=== PATIENT | female | born 1975 | race African-American/Black ===

== ENCOUNTER 2017-03-10 15:37 | Emergency (ER) | payer BC, MEDICAID ==
--- NOTE | 2017-03-10 16:00 | ER Document Report ---
ED Medical Screen (RME) - General Chief Complaint: Chest Pain Stated Complaint: CHEST PAIN Time Seen by Provider: 03/10/17 15:57 Notes: Patient states that about 1 hour ago she started with substernal chest pain and shortness of breath. She states she has had no cough or cold recently. She did have a normal stress test one year ago. She states that she does have a history of protein S deficiency and did have a blood clot when she was . The blood clot was in the placenta. She denies any DVTs otherwise or pulmonary embolisms in the past. She does not use tobacco. TRAVEL OUTSIDE OF THE [place] IN LAST 30 DAYS: No - Related Data Allergies/Adverse Reactions: methylergonovine maleate [From Methergine] Allergy (Severe, Verified 03/10/17 15 :43) Hemorrhage egg Allergy (Intermediate, Verified 03/10/17 15:43) Generalized Itching erythromycin base Allergy (Intermediate, Verified 03/10/17 15:43) Generalized Itching Iodinated Contrast- Oral and IV Dye Allergy (Intermediate, Verified 03/10/17 15: 43) Anaphylaxis Shellfish * Allergy (Intermediate, Verified 03/10/17 15:43) GI upset Past Medical History - Social History Frequency of alcohol use: None Drug Abuse: None - Past Medical History Cardiac Medical History: Denies: Hx Coronary Artery Disease, Hx Heart Attack, Hx Hypertension Pulmonary Medical History: Reports: Hx Asthma Denies: Hx Bronchitis, Hx COPD, Hx Pneumonia Neurological Medical History: Denies: Hx Cerebrovascular Accident, Hx Seizures Renal/ Medical History: Denies: Hx Peritoneal Dialysis Musculoskeltal Medical History: Denies Hx Arthritis Past Surgical History: Denies: Hx Hysterectomy - Immunizations Hx Diphtheria, Pertussis, Tetanus Vaccination: Yes Physical Exam - Vital signs Vitals: Temp Pulse Resp BP Pulse Ox 97.9 F 102 H 18 160/86 H 100 03/10/17 15:53 03/10/17 15:53 03/10/17 15:53 03/10/17 15:53 03/10/17 15:53 Course - Vital Signs Vital signs: Temp Pulse Resp BP Pulse Ox 97.9 F 102 H 18 160/86 H 100 03/10/17 15:53 03/10/17 15:53 03/10/17 15:53 03/10/17 15:53 03/10/17 15:53
[2017-03-10 16:28] LABS: ABSOLUTE EOSINOPHILS # (AUTO) 0.1 10^3/uL (0.0-0.6); ABSOLUTE LYMPHOCYTES (AUTO) 2.1 10^3/uL (0.5-4.7); ABSOLUTE MONOCYTES (AUTO) 0.8 10^3/uL (0.1-1.4); ABSOLUTE NEUT (AUTO) 4.5 10^3/uL (1.7-8.2); BASOPHILS % (AUTO) 0.3 % (0-2); EOSINOPHILS % (AUTO) 1.1 % (0-6); HEMATOCRIT 35.1 % (36.0-47.0); HGB HCT DIFFERENCE -2.1; LYMPHOCYTES % (AUTO) 27.6 % (13-45); MEAN CORPUSCULAR HGB CONC 31.2 g/dL (32.0-36.0); MEAN CORPUSCULAR VOLUME 77 fl (80-97); MONOCYTES % (AUTO) 10.1 % (3-13); RED BLOOD COUNT 4.57 10^6/uL (3.72-5.28); RED CELL DISTRIBUTION WIDTH 16.9 % (11.5-14.0); SEGMENTED NEUTROPHILS % (AUTO) 60.9 % (42-78); WHITE BLOOD COUNT 7.4 10^3/uL (4.0-10.5)
[2017-03-10 16:33] LABS: APPEARANCE,URINE SLIGHTLY-CLOUDY; BILIRUBIN,URINE NEGATIVE (NEGATIVE); GLUCOSE, URINE NEGATIVE (NEGATIVE); KETONES,URINE NEGATIVE (NEGATIVE); LEUKOCYTE ESTERASE,URINE NEGATIVE (NEGATIVE); NITRITE,URINE NEGATIVE (NEGATIVE); PROTEIN,URINE NEGATIVE (NEGATIVE); URINE SPECIFIC GRAVITY 1.031; UROBILINOGEN,URINE NEGATIVE mg/dL (<2.0)
[2017-03-10 16:44] LABS: ALANINE AMINOTRANSFERASE 29 U/L (9-52); ALBUMIN 4.6 g/dL (3.5-5.0); ALKALINE PHOSPHATASE 69 U/L (38-126); ANION GAP 14 (5-19); ASPARTATE AMINO TRANSFERASE 20 U/L (14-36); BILIRUBIN,DIRECT 0.4 mg/dL (0.0-0.4); BILIRUBIN,TOTAL 0.4 mg/dL (0.2-1.3); BLOOD UREA NITROGEN 13 mg/dL (7-20); CALCIUM 9.6 mg/dL (8.4-10.2); CARBON DIOXIDE 24 mmol/L (22-30); CHLORIDE 102 mmol/L (98-107); CREATININE RESULT 0.79 mg/dL (0.52-1.25); GLUCOSE 84 mg/dL (75-110); TOTAL PROTEIN 7.9 g/dL (6.3-8.2)
--- NOTE | 2017-03-10 16:52 | RADIOLOGY REPORT (SQ) ---
EXAM DESCRIPTION: CHEST PA/LAT COMPLETED DATE/TIME: 03/10/2017 4:25 pm REASON FOR STUDY: cp COMPARISON: Two-view chest 12/10/2015 EXAM PARAMETERS: NUMBER OF VIEWS: two views TECHNIQUE: Digital Frontal and Lateral radiographic views of the chest acquired. RADIATION DOSE: NA LIMITATIONS: none FINDINGS: LUNGS AND PLEURA: No opacities, masses or pneumothorax. No pleural effusion. MEDIASTINUM AND HILAR STRUCTURES: No masses or contour abnormalities. HEART AND VASCULAR STRUCTURES: Heart normal size. No evidence for failure. BONES: No acute findings. HARDWARE: None in the chest. OTHER: No other significant finding. IMPRESSION: NO SIGNIFICANT RADIOGRAPHIC FINDING IN THE CHEST. TECHNICAL DOCUMENTATION: JOB ID: [id number] [employer]- All Rights Reserved
[2017-03-10] MEDS ORDERED: MAG HYDROX/AL HYDROX/SIMETH SUSP 30 ML UDCUP PO ONE (17:28)
[2017-03-10] MEDS ORDERED: LIDOCAINE 2% VISCOUS SOLN 20 ML UDCUP PO ONE (17:28)
--- NOTE | 2017-03-10 17:29 | ER Document Report ---
ED General - General Mode of Arrival: Ambulatory Information source: Patient TRAVEL OUTSIDE OF THE [place] IN LAST 30 DAYS: No <TASHIA ISBELL - Last Filed: 03/10/17 17:29> <POP GIORDANO - Last Filed: 03/10/17 19:37> - General Chief Complaint: Chest Pain Stated Complaint: CHEST PAIN Time Seen by Provider: 03/10/17 15:57 Notes: Patient is a 41-year-old female who presents to the emergency department today with complaints of chest pain of a 2 hour duration. Patient states she noticed the pain is much worse when she bends over and breathes. Patient states she has "bad GERD" and over the last week has had an increased amount of acid production she feels like, and after eating food her throat gets the sensation that it is closing. Patient denies any reproduction of pain with cough. (TASHIA ISBELL) - Related Data Allergies/Adverse Reactions: methylergonovine maleate [From Methergine] Allergy (Severe, Verified 03/10/17 15 :43) Hemorrhage egg Allergy (Intermediate, Verified 03/10/17 15:43) Generalized Itching erythromycin base Allergy (Intermediate, Verified 03/10/17 15:43) Generalized Itching Iodinated Contrast- Oral and IV Dye Allergy (Intermediate, Verified 03/10/17 15: 43) Anaphylaxis Shellfish * Allergy (Intermediate, Verified 03/10/17 15:43) GI upset Past Medical History - General Information source: Patient, [facility] Records - Social History Smoking Status: Never Smoker Cigarette use (# per day): No Frequency of alcohol use: None Drug Abuse: None Lives with: Family Family History: Reviewed & Not Pertinent Pulmonary Medical History: Reports: Hx Asthma Surgical Hx: Negative - Immunizations Hx Diphtheria, Pertussis, Tetanus Vaccination: Yes <TASHIA ISBELL - Last Filed: 03/10/17 17:29> <POP GIORDANO - Last Filed: 03/10/17 19:37> - Medical History Notes: Protein S deficiency (TASHIA ISBELL) Review of Systems - Review of Systems Constitutional: No symptoms reported EENT: No symptoms reported Cardiovascular: See HPI, Chest pain Respiratory: No symptoms reported Gastrointestinal: See HPI, Other - GERD Genitourinary: No symptoms reported Female Genitourinary: No symptoms reported Musculoskeletal: No symptoms reported Skin: No symptoms reported Hematologic/Lymphatic: No symptoms reported Neurological/Psychological: No symptoms reported -: Yes All other systems reviewed and negative <SUKHITASHIA - Last Filed: 03/10/17 17:29> Physical Exam - Vital signs Interpretation: Normal - General General appearance: Appears well, Alert - HEENT Head: Normocephalic, Atraumatic Eyes: Normal Pupils: PERRL - Respiratory Respiratory status: No respiratory distress Chest status: Nontender - no chest wall tenderness Breath sounds: Normal Chest palpation: Normal - Cardiovascular Rhythm: Regular Heart sounds: Normal auscultation Murmur: No - Abdominal Inspection: Obese Distension: No distension Bowel sounds: Normal Tenderness: Tender - mild epigastric tenderness with palpation Organomegaly: No organomegaly - Back Back: Normal, Nontender - Extremities General upper extremity: Normal inspection, Normal strength. No: Edema General lower extremity: Normal inspection, Normal strength. No: Edema - Neurological Neuro grossly intact: Yes Cognition: Normal Orientation: AAOx4 Brice Coma Scale Eye Opening: Spontaneous Granby Coma Scale Verbal: Oriented Gran[place] Coma Scale Motor: Obeys Commands Granby Coma Scale Total: 15 Speech: Normal - Psychological Associated symptoms: Normal affect, Normal mood - Skin Skin Temperature: Warm Skin Moisture: Dry Skin Color: Normal <SUKHITASHIA - Last Filed: 03/10/17 17:29> - Vital signs Vitals: Temp Pulse Resp BP Pulse Ox 97.9 F 102 H 18 160/86 H 100 03/10/17 15:53 03/10/17 15:53 03/10/17 15:53 03/10/17 15:53 03/10/17 15:53 Course - Laboratory Result Diagrams: 03/10/17 16:00 03/10/17 16:00 <SUKHITASHIA - Last Filed: 03/10/17 17:29> - Laboratory Result Diagrams: 03/10/17 16:00 03/10/17 16:00 - Diagnostic Test Radiology reviewed: Reports reviewed - Ventilation/perfusion lung scan is negative for pulmonary embolus. Chest x-ray is unremarkable. - EKG Interpretation by [facility] EKG shows normal: Sinus rhythm, Mullins, Intervals, QRS Complexes, ST-T Waves Rate: Tachycardia - 101 <POP GIORDANO - Last Filed: 03/10/17 19:37> - Vital Signs Vital signs: Temp Pulse Resp BP Pulse Ox 98.7 F 102 H 18 142/84 H 99 03/10/17 19:28 03/10/17 19:28 03/10/17 19:28 03/10/17 19:28 03/10/17 19:28 - Laboratory Laboratory results interpreted by me: 03/10/17 03/10/17 16:00 16:00 Hgb 11.0 L Hct 35.1 L MCV 77 L MCH 24.0 L MCHC 31.2 L RDW 16.9 H Urine Ascorbic Acid 40 H Discharge <TASHIA ISBELL - Last Filed: 03/10/17 17:29> <POP GIORDANO - Last Filed: 03/10/17 19:37> - Discharge Clinical Impression: Chest pain Qualifiers: Chest pain type: unspecified Qualified Code(s): R07.9 - Chest pain, unspecified High blood pressure Qualifiers: Hypertension type: unspecified Qualified Code(s): I10 - Essential (primary) hypertension Condition: Stable Disposition: HOME, SELF-CARE Additional Instructions: Chest Pain of Unclear Cause: The exact cause of your chest pain isn't clear. Fortunately, there is no evidence of a dangerous medical condition. Further testing may be required to find the source of the pain. Most often, we find that this pain is coming from the chest wall -- the muscles or rib joints in the chest. But chest pain can come from the lung and lung lining, the esophagus, the heart valves or heart lining, and even the stomach or gallbladder. Rest. Eat lightly until the pain is gone. We may prescribe medicine for pain and inflammation. You should call the physician immediately if the pain radiates to the shoulder, jaw or arms; if you start to run a fever or develop a cough; or if you develop shortness of breath, or other new or alarming symptoms. High Blood Pressure: When your blood pressure was taken today it was elevated. Today's reading was 160/86. Pre-hypertension/Hypertension: The patient has been informed that they may have pre-hypertension or Hypertension based on a blood pressure reading in the emergency department. I recommend that the patient call their primary care provider next week to arrange follow up for further evaluation of possible pre- hypertension or Hypertension. Sometimes, stress or illness causes a temporary elevation of your blood pressure. We suggest that you get your blood pressure measured three more times during the next few days to see if this is more than a temporary abnormality. If your blood pressure is greater than 150/90 on each occasion, you must have treatment. Some simple things you can do to help are: If you have blood pressure medicine but aren't using it regularly, start taking it again. Get some aerobic exercise for at least 20 minutes on a daily basis. (See your doctor before beginning a new exercise program.) Eat a low-fat diet. Lose excess weight. Avoid salty foods and avoid adding salt to any of the foods you eat. Avoid diet pills, decongestants, "energizing" herbs, and other medicines that elevate blood pressure. If left untreated, hypertension greatly enhances your risk for developing heart disease and strokes. Please don't ignore this problem. RETURN TO THE EMERGENCY ROOM IF ANY NEW OR WORSENING SYMPTOMS. Referrals: DAQUAN CURRY DO [Primary Care Provider] - Follow up as needed Scribe Attestation: 03/10/17 19:25 I personally performed the services described in the documentation, reviewed and edited the documentation which was dictated to the scribe in my presence, and it accurately records my words and actions. (POP GIORDANO) Scribe Documentation - Scribe Written by Guillermina:: Guillermina Cornejo, 03/10/2017 1728 acting as scribe for :: Neil <TASHIA ISBELL - Last Filed: 03/10/17 17:29>
--- NOTE | 2017-03-10 18:47 | EKG REPORT ---
SEVERITY:- OTHERWISE NORMAL ECG - SINUS TACHYCARDIA : Confirmed by: Jayant Lee MD 10-Mar-2017 18:46:27
--- NOTE | 2017-03-10 19:22 | RADIOLOGY REPORT (SQ) ---
EXAM DESCRIPTION: NM LUNG VENT/PERF SCAN COMPLETED DATE/TIME: 03/10/2017 7:10 pm REASON FOR STUDY: Pleuritic chest pain, protein S deficiency COMPARISON: Chest x-ray dated 03/10/2017. RADIONUCLIDE AND DOSE: 5.25 millicuries TC-99m MAA Intravenous 29.9 millicuries TC-99m DTPA Inhaled aerosol TECHNIQUE: Eight views of the lungs acquired post ventilation of DTPA aerosol. Eight matching views of the lungs acquired following injection of MAA. LIMITATIONS: None. FINDINGS: VENTILATION: Symmetric and homogeneous distribution of DTPA aerosol during ventilatory pha se. No significant areas of photopenia. PERFUSION: Perfusion images with normal homogenous activity and no wedge-shaped or segmental defects. No ventilation-perfusion mismatches. OTHER: No other significant finding. IMPRESSION: NORMAL VENTILATION-PERFUSION LUNG SCAN. NEGATIVE FOR PULMONARY EMBOLI. TECHNICAL DOCUMENTATION: JOB ID: [id number] [employer]- All Rights Reserved
[2017-03-10 19:30] VITALS: BP 142/84
== END 2017-03-10 20:12 | disposition home or self-care (01) ==
LOC: ER 15:37
DX: R07.9 Chest pain, unspecified (principal); I10 Essential (primary) hypertension
CPT/HCPCS: 93005; 99285; 36415; 85025; 81025; 80053; 81001; 84484; 85379; 71020; 78582; 93010; A9540; A9567; J3490; Q9969

== ENCOUNTER → 2017-04-06 | Outpatient (CLI) | payer BC, MEDICAID ==
--- NOTE | 2017-04-06 15:14 | WOMENS IMAGING REPORT ---
EXAM DESCRIPTION: 3D SCREENING MAMMO BILAT COMPLETED DATE/TIME: 04/06/2017 10:44 am REASON FOR STUDY: ROUTINE SCREENING; Z12.31 Z12.31 ENCNTR SCREEN MAMMOGRAM FOR MALIGNANT NEOPLASM O F ABIGAIL COMPARISON: 02/19/2016 TECHNIQUE: Standard craniocaudal and mediolateral oblique views of each breast recorded using digita l acquisition and breast tomosynthesis. LIMITATIONS: None. FINDINGS: No masses, calcifications or architectural distortion. No areas of suspicion. Read with the assistance of CAD. .[facility] - R2 Cenova Version 1.3 .[facility] - R2 Cenova Version 1.3 .[facility] - R2 Cenova Version 2.4 .[facility] [place] - R2 Cenova Version 2.4 .ON LICENSE OF [facility] - R2 General Farmer Version 9.2 IMPRESSION: NORMAL MAMMOGRAM. BIRADS 1. BREAST DENSITY: c. The breasts are heterogeneously dense, which may obscure small masses. BIRAD: 1 NEGATIVE RECOMMENDATION: ROUTINE SCREENING Please continue yearly bilateral screening tomosynthesis in April 2018 COMMENT: The patient has been notified of the results by letter per SA requirements. Additional no tification policies are in place for contacting patient with suspicious or incomplete findings. Quality ID #[id number]: The [employer] [employer] recommends an annual screening mammogram for women aged 40 years or over. This facility utilizes a reminder system to ensure that all patients receive reminder letters, and/or direct phone calls for appointments. This includes reminders for routine scr eening mammograms, diagnostic mammograms, or other Breast Imaging Interventions when appropriate. Th is patient will be placed in the appropriate reminder system. The [place] [place] [employer] (ACR) has developed recommendations for screening MRI of the breast s in certain patient populations, to be used in conjunction with mammography. Breast MRI surveillanc e may be appropriate for women with more than 20% lifetime risk of developing breast cancer as deter mined by genetic testing, significant family history of the disease, or history of mantle radiation f or Hodgkins Disease. ACR Practice Guidelines 2008. DBT Technology DBT is a type of tomographic mammography. With conventional mammography, overlapping breast tissue ma y make lesions difficult to detect, even with good compression. DBT uses an x-ray tube that rotates a round the breast, taking images at different angles. These images are then combined to create thin sl ices of the breast that the radiologist can view as a 3D reconstruction. The [employer] unit can perform full-field digital mammograms (2D imaging); or DBT (3D imaging); or both, in a combination mode that quickly performs both the mammogram and the tomosynthesis scan while the breast is still compressed. PQRS 6045F: Fluoroscopic imaging is not utilized for breast tomosynthesis. TECHNICAL DOCUMENTATION: FINDING NUMBER: (1) ASSESSMENT: (1) JOB ID: [id number] [employer]- All Rights Reserved
== END ==
LOC: WI 10:36
PROVIDERS: ATTEND Physician Assistant
DX: Z12.31 Encounter for screening mammogram for malignant neoplasm of breast (principal)
CPT/HCPCS: 77063; G0202; 77067

== ENCOUNTER 2017-05-13 12:18 | Emergency (ER) | payer BC, MEDICAID ==
--- NOTE | 2017-05-13 12:43 | ER Document Report ---
ED Medical Screen (RME) - General Chief Complaint: Abdominal Pain Stated Complaint: STOMACH PAIN Time Seen by Provider: 05/13/17 12:40 Mode of Arrival: Ambulatory Information source: Patient TRAVEL OUTSIDE OF THE [place] IN LAST 30 DAYS: No - HPI Patient complains to provider of: abd pain Onset: Other - pt . states she took advil yesterday for menstrual cramps but her abdominal pain worsened. States she has no had a BM in 2 days - Related Data Allergies/Adverse Reactions: methylergonovine maleate [From Methergine] Allergy (Severe, Verified 05/13/17 12 :22) Hemorrhage egg Allergy (Intermediate, Verified 05/13/17 12:22) Generalized Itching erythromycin base Allergy (Intermediate, Verified 05/13/17 12:22) Generalized Itching Iodinated Contrast- Oral and IV Dye Allergy (Intermediate, Verified 05/13/17 12: 22) Anaphylaxis Shellfish * Allergy (Intermediate, Verified 05/13/17 12:22) GI upset Home Medications: Current Home Medications Ferrous Sulfate [Iron] 325 mg PO DAILY 05/13/17 [History] Multivitamin [Multivitamins] 1 each PO DAILY 05/13/17 [History] Past Medical History - Past Medical History Cardiac Medical History: Denies: Hx Coronary Artery Disease, Hx Heart Attack, Hx Hypertension Pulmonary Medical History: Reports: Hx Asthma Denies: Hx Bronchitis, Hx COPD, Hx Pneumonia Neurological Medical History: Denies: Hx Cerebrovascular Accident, Hx Seizures Renal/ Medical History: Denies: Hx Peritoneal Dialysis Musculoskeltal Medical History: Denies Hx Arthritis Past Surgical History: Denies: Hx Hysterectomy - Immunizations Hx Diphtheria, Pertussis, Tetanus Vaccination: Yes Physical Exam - Vital signs Vitals: Temp Pulse Resp BP Pulse Ox 98.6 F 83 16 148/89 H 97 05/13/17 12:23 05/13/17 12:23 05/13/17 12:23 05/13/17 12:23 05/13/17 12:23 Course - Vital Signs Vital signs: Temp Pulse Resp BP Pulse Ox 98.6 F 83 16 148/89 H 97 05/13/17 12:23 05/13/17 12:23 05/13/17 12:23 05/13/17 12:23 05/13/17 12:23
[2017-05-13 13:54] LABS: ABSOLUTE LYMPHOCYTES (AUTO) 1.4 10^3/uL (0.5-4.7); ABSOLUTE MONOCYTES (AUTO) 0.5 10^3/uL (0.1-1.4); ABSOLUTE NEUT (AUTO) 4.6 10^3/uL (1.7-8.2); BASOPHILS % (AUTO) 0.1 % (0-2); EOSINOPHILS % (AUTO) 0.7 % (0-6); HEMATOCRIT 34.4 % (36.0-47.0); HEMOGLOBIN 11.1 g/dL (12.0-15.5); HGB HCT DIFFERENCE -1.1; LYMPHOCYTES % (AUTO) 21.4 % (13-45); MEAN CORPUSCULAR HEMOGLOBIN 24.1 pg (27.0-33.4); MEAN CORPUSCULAR HGB CONC 32.2 g/dL (32.0-36.0); MEAN CORPUSCULAR VOLUME 75 fl (80-97); MONOCYTES % (AUTO) 8.2 % (3-13); RED CELL DISTRIBUTION WIDTH 16.8 % (11.5-14.0); SEGMENTED NEUTROPHILS % (AUTO) 69.6 % (42-78); WHITE BLOOD COUNT 6.7 10^3/uL (4.0-10.5)
--- NOTE | 2017-05-13 13:56 | RADIOLOGY REPORT (SQ) ---
EXAM DESCRIPTION: ACUTE ABDOMEN SERIES COMPLETED DATE/TIME: 05/13/2017 1:45 pm REASON FOR STUDY: abd pain COMPARISON: None. NUMBER OF VIEWS: Three views. TECHNIQUE: Frontal chest, supine abdomen and upright abdomen radiographic images acquired. LIMITATIONS: None. FINDINGS: CHEST: Lungs clear of infiltrates. FREE AIR: None. No abnormal gas collections. BOWEL GAS PATTERN: Nonobstructive pattern. No dilated loops or air fluid levels. CALCIFICATIONS: No suspicious calcifications. HARDWARE: None in the abdomen. SOFT TISSUES: No gross mass or suggestion of organomegaly. BONES: No acute fracture. No worrisome bone lesions. OTHER: No other significant finding. IMPRESSION: NO RADIOGRAPHIC EVIDENCE FOR ACUTE ABDOMINAL DISEASE. TECHNICAL DOCUMENTATION: JOB ID: [id number] [employer]- All Rights Reserved
[2017-05-13 14:00] LABS: APPEARANCE,URINE SLIGHTLY-CLOUDY; BILIRUBIN,URINE NEGATIVE (NEGATIVE); GLUCOSE, URINE NEGATIVE (NEGATIVE); KETONES,URINE NEGATIVE (NEGATIVE); LEUKOCYTE ESTERASE,URINE TRACE (NEGATIVE); NITRITE,URINE NEGATIVE (NEGATIVE); PROTEIN,URINE 30 mg/dL (NEGATIVE); URINE SPECIFIC GRAVITY 1.033; UROBILINOGEN,URINE NEGATIVE mg/dL (<2.0)
[2017-05-13 14:21] LABS: ALANINE AMINOTRANSFERASE 25 U/L (9-52); ALBUMIN 4.5 g/dL (3.5-5.0); ALKALINE PHOSPHATASE 57 U/L (38-126); ANION GAP 13 (5-19); ASPARTATE AMINO TRANSFERASE 19 U/L (14-36); BILIRUBIN,DIRECT 0.2 mg/dL (0.0-0.4); BILIRUBIN,TOTAL 0.5 mg/dL (0.2-1.3); BLOOD UREA NITROGEN 8 mg/dL (7-20); CALCIUM 9.5 mg/dL (8.4-10.2); CARBON DIOXIDE 22 mmol/L (22-30); CHLORIDE 107 mmol/L (98-107); GLUCOSE 86 mg/dL (75-110); LIPASE 53.9 U/L (23-300); POTASSIUM 4.3 mmol/L (3.6-5.0); SODIUM 142.1 mmol/L (137-145); TOTAL PROTEIN 7.8 g/dL (6.3-8.2)
[2017-05-13] MEDS ORDERED: KETOROLAC TROMETHAMINE INJ/PF 30 MG/1 ML SDV IV ONE (14:54)
--- NOTE | 2017-05-13 17:19 | RADIOLOGY REPORT (SQ) ---
EXAM DESCRIPTION: U/S NON OB PEL W/DOPPLER COMPLETED DATE/TIME: 05/13/2017 5:05 pm REASON FOR STUDY: pelvic/low abd pain, refuses tv or pelvic COMPARISON: None. TECHNIQUE: Dynamic and static grayscale images acquired of the pelvis via transabdominal approach an d recorded on PACS. Additional selected color Doppler and spectral images recorded. LIMITATIONS: None. FINDINGS: UTERUS: Somewhat enlarged, noting multiple fibroids measuring up to 3.5 x 3.0 x 4.0 cm. ENDOMETRIAL STRIPE: No focal or generalized thickening. No masses. CERVIX: No nabothian cysts. RIGHT OVARY: Ovary not visualized. RIGHT OVARY DOPPLER: Normal arterial vascular flow without evidence for torsion. LEFT OVARY: No abnormal masses. LEFT OVARY DOPPLER: Normal arterial vascular flow without evidence for torsion. FREE FLUID: None noted. OTHER: No other significant finding. MEASUREMENTS: UTERUS: 11.8 x 7.4 x 6.1 cm ENDOMETRIAL STRIPE: 0.8 cm RIGHT OVARY: Not visualized. LEFT OVARY: 3.2 x 1.5 x 2.6 cm IMPRESSION: Multi fibroid uterus. Nonvisualization of the right ovary. Normal appearance of the le ft ovary. TECHNICAL DOCUMENTATION: JOB ID: [id number] [employer]- All Rights Reserved
--- NOTE | 2017-05-13 17:26 | ER Document Report ---
ED GI/ - General Chief Complaint: Abdominal Pain Stated Complaint: STOMACH PAIN Time Seen by Provider: 05/13/17 12:40 Mode of Arrival: Ambulatory Information source: Patient Notes: Patient is a 41-year-old female who presents to the ER today for lower abdominal pain 1 day. Patient states that she started her menstrual cycle 2 days ago and that she has cramping but that she also has this "pressure" pain to the middle of her lower abdomen. Patient states that she has a history of fibroids but states "they are small." She denies any dysuria, vaginal discharge , fever, chills, possible . TRAVEL OUTSIDE OF THE [place] IN LAST 30 DAYS: No - Related Data Allergies/Adverse Reactions: methylergonovine maleate [From Methergine] Allergy (Severe, Verified 05/13/17 12 :22) Hemorrhage egg Allergy (Intermediate, Verified 05/13/17 12:22) Generalized Itching erythromycin base Allergy (Intermediate, Verified 05/13/17 12:22) Generalized Itching Iodinated Contrast- Oral and IV Dye Allergy (Intermediate, Verified 05/13/17 12: 22) Anaphylaxis Shellfish * Allergy (Intermediate, Verified 05/13/17 12:22) GI upset Home Medications: Current Home Medications Ferrous Sulfate [Iron] 325 mg PO DAILY 05/13/17 [History] Multivitamin [Multivitamins] 1 each PO DAILY 05/13/17 [History] Past Medical History - General Information source: Patient - Social History Smoking Status: Never Smoker Chew tobacco use (# tins/day): No Frequency of alcohol use: None Drug Abuse: None Family History: Reviewed & Not Pertinent Patient has suicidal ideation: No Patient has homicidal ideation: No - Past Medical History Cardiac Medical History: Denies: Hx Coronary Artery Disease, Hx Heart Attack, Hx Hypertension Pulmonary Medical History: Reports: Hx Asthma Denies: Hx Bronchitis, Hx COPD, Hx Pneumonia Neurological Medical History: Denies: Hx Cerebrovascular Accident, Hx Seizures Renal/ Medical History: Denies: Hx Peritoneal Dialysis Musculoskeltal Medical History: Denies Hx Arthritis Past Surgical History: Reports: Hx Section, Hx Thyroid Surgery. Denies : Hx Hysterectomy - Immunizations Hx Diphtheria, Pertussis, Tetanus Vaccination: Yes Review of Systems - Review of Systems Constitutional: No symptoms reported EENT: No symptoms reported Cardiovascular: No symptoms reported Respiratory: No symptoms reported Gastrointestinal: No symptoms reported Genitourinary: See HPI Female Genitourinary: No symptoms reported Musculoskeletal: No symptoms reported Skin: No symptoms reported Hematologic/Lymphatic: No symptoms reported Neurological/Psychological: No symptoms reported Physical Exam - Vital signs Vitals: Temp Pulse Resp BP Pulse Ox 98.6 F 83 16 148/89 H 97 05/13/17 12:23 05/13/17 12:23 05/13/17 12:23 05/13/17 12:23 05/13/17 12:23 - Notes Notes: PHYSICAL EXAMINATION: GENERAL: Uncomfortable appearing, but suprapubic in no acute distress. HEAD: Atraumatic, normocephalic. EYES: Pupils equal round and reactive to light, extraocular movements intact, sclera anicteric, conjunctiva are normal. NECK: Normal range of motion, supple without lymphadenopathy LUNGS: CTAB and equal. No wheezes rales or rhonchi. HEART: Regular rate and rhythm without murmurs ABDOMEN: Soft, suprapubic tenderness. No guarding, no rebound BACK: no vertebral tenderness, normal ROM GI/: no CVA tenderness EXTREMITIES: Normal range of motion, no pitting edema. No cyanosis. NEUROLOGICAL: Cranial nerves grossly intact. Normal sensory/motor exams. PSYCH: Normal mood, normal affect. SKIN: Warm, Dry, normal turgor, no rashes or lesions noted Course - Re-evaluation Re-evalutation: 05/13/17 18:17 Patient refused pelvic exam or transvaginal ultrasound. Abdominal ultrasound reveals multiple fibroids. Lab work is unremarkable today. Patient will be sent home with something for pain and to follow-up with her [employer]. - Vital Signs Vital signs: Temp Pulse Resp BP Pulse Ox 98.6 F 83 16 148/89 H 97 05/13/17 12:23 05/13/17 12:23 05/13/17 12:23 05/13/17 12:23 05/13/17 12:23 - Laboratory Result Diagrams: 05/13/17 13:13 05/13/17 13:13 Laboratory results interpreted by me: 05/13/17 05/13/17 13:13 13:13 Hgb 11.1 L Hct 34.4 L MCV 75 L MCH 24.1 L RDW 16.8 H Urine Protein 30 H Urine Blood LARGE H Ur Leukocyte Esterase TRACE H Discharge - Discharge Clinical Impression: Fibroid uterus Qualifiers: Uterine leiomyoma location: unspecified location Qualified Code(s): D25.9 - Leiomyoma of uterus, unspecified Condition: Stable Disposition: HOME, SELF-CARE Additional Instructions: Return immediately for any new or worsening symptoms. Follow up with [employer]ELOPER, call tomorrow to make followup appointment. Prescriptions: Hydrocodone/Acetaminophen [Bock 5-325 mg Tablet] 1 tab PO Q4 PRN #15 tablet PRN Reason: Forms: Return to Work Referrals: ZEYNEP POE DO [Primary Care Provider] - Follow up as needed [facility] [Provider Group] - Follow up as needed
[2017-05-13 19:24] VITALS: BP 131/69
== END 2017-05-13 18:30 | disposition home or self-care (01) ==
LOC: ER 12:18
DX: D25.9 Leiomyoma of uterus, unspecified (principal); R10.30 Lower abdominal pain, unspecified; Z79.899 Other long term (current) drug therapy
CPT/HCPCS: 99284; 96374; 36415; 83690; 85025; 81025; 80053; 81001; 74022; 76856; 93976; J1885